=== PATIENT | male | born 1965 | race Caucasian/White ===

== ENCOUNTER 2016-07-10 01:41 | Emergency (ER) | payer OTHER ==
[~2016-07-10 01:41] MED LIST: ASPIRIN CHEWABL81 MG PO; BACLOFEN 10MG T10 MG PO; FENOFIBRATE145 MG PO; IBUPROFEN800 MG PO; KOMBIGLYZE XR1 EACH PO; LIPITOR80 MG PO; LOVAZA1 GM PO; MELOXICAM15 MG PO; NEURONTIN100 MG PO; NUCYNTA50 MG PO; PERCOCET 5/3251 TAB PO; SUDOGEST30 MG PO; VITAMIN E200 UNI3 PO; XARELTO10 MG PO
[2016-07-10 02:33] LABS: BASOPHIL 0.9 % (0-2); EOSINOPHIL 2.7 % (0-5); HCT 42.6 % (42.0-52.0); LYMPHOCYTE 42.5 % (15-48); MCH 31.4 pg (25.0-31.0); MCHC 35.2 g/dL (32.0-36.0); MCV 89.3 fL (78.0-100.0); MONOCYTE 12.7 % (0-12); NEUTROPHIL 41.2 % (41-80); PLT 273 K/uL (150-400); RBC 4.77 M/uL (4.70-6.00); RDW 12.6 % (11.5-14.0); WBC 8.7 K/uL (4.0-10.5)
[2016-07-10 02:42] LABS: INR 0.94 (0.9-1.2); PROTHROMBIN TIME 12.2 SECONDS (11.7-14.0); PTT 25.7 SECONDS (23.2-31.4)
[2016-07-10 02:52] LABS: ALBUMIN 4.2 g/dL (3.5-5.0); BILIRUBIN - TOTAL 0.8 mg/dL (0.1-1.0); CKMB 2.44 ng/mL (0.97-4.94); CREATININE 0.7 mg/dL (0.7-1.2); GLOBULIN (CALCULATION) 2.2 g/dL (2.2-4.2); MAGNESIUM 1.85 mg/dL (1.40-2.10); MYOGLOBIN 30 ng/mL (26-65); POTASSIUM 3.8 mmol/L (3.5-5.1); PRO-BNP 23 pg/mL (0-125); TOTAL PROTEIN 6.4 g/dL (6.4-8.3); TROPONIN T < 0.010 ng/mL
== END 2016-07-10 04:13 | disposition home or self-care (01) ==
LOC: FER 01:41
PROVIDERS: Emergency Medicine
DX: K29.70 Gastritis, unspecified, without bleeding (principal); R19.7 Diarrhea, unspecified; K21.9 Gastro-esophageal reflux disease without esophagitis; Z90.49 Acquired absence of other specified parts of digestive tract; Z90.89 Acquired absence of other organs; Z79.899 Other long term (current) drug therapy
CPT/HCPCS: 36415; 71010; 80053; 82550; 82553; 83735; 83874; 83880; 84484; 85025; 85610; 85730; 93005; C9113

== ENCOUNTER 2020-11-02 02:53 | Emergency (ER) | payer OTHER ==
[~2020-11-02 02:53] MED LIST changes: +ACTOS45 MG PO; +AMARYL2 MG PO; +BACTRIM DS TAB1 EACH PO; +CETIRIZINE HCL5 MG PO; +DIAZEPAM 5MG TAB5 MG PO; +GABAPENTIN300 MG PO; +HCTZ12.5 MG PO; +KEFLEX250 MG PO; +METFORMIN HCL500 MG PO; +NEURONTIN300 MG PO; +OXY-IR 5MG5 MG PO; +OXYCODONE HCL15 M1 PO; +OXYCODONE HCL5 MG PO; +OZEMPIC1 MG/0.75 SC; +PERCOCET 5-3251 EACH PO; +PRINIVIL10 MG PO; +TRAZODONE 50MG50 MG PO; +VICODIN 10/3251 EACH PO; +ZOFRAN4 MG PO
[2020-11-02 03:46] LABS: BASOPHIL 0.8 % (0-2); EOSINOPHIL 2.4 % (0-5); HCT 44.9 % (42.0-52.0); HGB 15.2 g/dl (13.2-18.0); LYMPHOCYTE 33.5 % (15-48); MCHC 33.9 g/dL (32.0-36.0); MCV 91.4 fL (78.0-100.0); MONOCYTE 14.5 % (0-12); MPV 9.1 fL (6.0-9.5); NEUTROPHIL 48.4 % (41-80); NRBC 0; PLT 227 K/uL (150-400); RBC 4.91 M/uL (4.70-6.00); WBC 8.3 K/uL (4.0-10.5)
[2020-11-02 04:06] LABS: BUN/CREAT RATIO (CALC) 18.9 RATIO; C-REACTIVE PROTEIN 0.6 mg/dL (<=0.90); CREATININE 0.74 mg/dL (0.67-1.17)
[2020-11-02] MEDS ORDERED: MOBIC7.5 MG PO (04:26)
[2020-11-02] MEDS ORDERED: ROBAXIN500 MG PO (04:26)
== END 2020-11-02 04:34 | disposition home or self-care (01) ==
LOC: FER 02:53
PROVIDERS: Emergency Medicine Emergency Medical Services
DX: S46.812A Strain of other muscles, fascia and tendons at shoulder and upper arm level, left arm, initial encounter (principal); E11.9 Type 2 diabetes mellitus without complications; X50.0XXA Overexertion from strenuous movement or load, initial encounter; Y92.89 Other specified places as the place of occurrence of the external cause; Y99.0 Civilian activity done for income or pay
CPT/HCPCS: 36415; 71045; 73030; 80048; 84484; 85025; 86140; 93005; J1100; J1885; J2800; J7050

== ENCOUNTER 2021-04-23 17:36 | Emergency (ER) | payer OTHER ==
[~2021-04-23 17:36] MED LIST changes: +MOBIC7.5 MG PO; +OXYCODONE IR 5MG5 MG PO; +ROBAXIN500 MG PO
[2021-04-23 18:21] LABS: BASOPHIL 1.3 % (0-2); EOSINOPHIL 3.5 % (0-5); HCT 46.6 % (42.0-52.0); HGB 15.6 g/dl (13.2-18.0); LYMPHOCYTE 39.2 % (15-48); MCH 30.8 pg (25.0-31.0); MCHC 33.5 g/dL (32.0-36.0); MCV 91.9 fL (78.0-100.0); MONOCYTE 12.7 % (0-12); MPV 8.6 fL (6.0-9.5); NEUTROPHIL 42.7 % (41-80); NRBC 0; PLT 365 K/uL (150-400); RBC 5.07 M/uL (4.70-6.00); RDW 11.9 % (11.5-14.0); WBC 8.6 K/uL (4.0-10.5)
[2021-04-23 18:37] LABS: BILIRUBIN NEGATIVE (NEGATIVE); BLOOD NEGATIVE Ery/uL (NEGATIVE); CLARITY CLEAR (CLEAR); COLOR YELLOW (YELLOW); GLUCOSE (U) 2+ mg/dL (NORMAL); LEUKOCYTES NEGATIVE Leu/uL (NEGATIVE); NITRITE NEGATIVE (NEGATIVE); PROTEIN NEGATIVE (NEGATIVE); SPECIFIC GRAVITY >=1.030 (1.001-1.030); UROBILINOGEN 0.2 mg/dL (0.2-1.0); pH 5.5 (5.0-9.0)
[2021-04-23 18:40] LABS: BUN/CREAT RATIO (CALC) 15.9 RATIO; CREATININE 1.07 mg/dL (0.67-1.17)
[2021-04-23 18:54] LABS: CORONAVIRUS 2019 SARS-COV-2 NEGATIVE (NEGATIVE); INFLUENZA A NAA NEGATIVE (NEGATIVE)
[2021-04-23] MEDS ORDERED: VENTOLIN HFA IN18 GM INH (20:24)
[2021-04-23] MEDS ORDERED: PREDNISONE 20MG20 MG PO (20:24)
== END 2021-04-23 20:43 | disposition home or self-care (01) ==
LOC: FER 17:36
PROVIDERS: Nurse Practitioner Family
DX: J20.9 Acute bronchitis, unspecified (principal); R10.12 Left upper quadrant pain; E11.40 Type 2 diabetes mellitus with diabetic neuropathy, unspecified; Z20.822 Contact with and (suspected) exposure to COVID-19
CPT/HCPCS: 36415; 71046; 71275; 80048; 81003; 84484; 85025; 85379; 93005; J7030; Q9967; U0002

== ENCOUNTER 2021-05-26 07:43 | Emergency (ER) | payer OTHER ==
[~2021-05-26 07:43] MED LIST changes: +PREDNISONE 20MG20 MG PO; +VENTOLIN HFA IN18 GM INH
[2021-05-26 08:40] LABS: BASOPHIL 0.9 % (0-2); EOSINOPHIL 2.9 % (0-5); HCT 42.2 % (42.0-52.0); HGB 14.1 g/dl (13.2-18.0); LYMPHOCYTE 30.5 % (15-48); MCH 30.5 pg (25.0-31.0); MCHC 33.4 g/dL (32.0-36.0); MCV 91.3 fL (78.0-100.0); MONOCYTE 14.5 % (0-12); MPV 9.1 fL (6.0-9.5); NEUTROPHIL 50.6 % (41-80); NRBC 0; PLT 247 K/uL (150-400); RBC 4.62 M/uL (4.70-6.00); WBC 8.2 K/uL (4.0-10.5)
[2021-05-26 08:47] LABS: INR 1.06 (0.9-1.2); PROTHROMBIN TIME 13.2 SECONDS (11.8-13.4); PTT 27.5 SECONDS (24.4-34.7)
[2021-05-26 08:52] LABS: BILIRUBIN NEGATIVE (NEGATIVE); BLOOD NEGATIVE Ery/uL (NEGATIVE); CLARITY CLEAR (CLEAR); COLOR YELLOW (YELLOW); GLUCOSE (U) 2+ mg/dL (NORMAL); LEUKOCYTES NEGATIVE Leu/uL (NEGATIVE); NITRITE NEGATIVE (NEGATIVE); PROTEIN NEGATIVE (NEGATIVE); SPECIFIC GRAVITY >=1.030 (1.001-1.030); UROBILINOGEN 0.2 mg/dL (0.2-1.0)
[2021-05-26 08:56] LABS: ALBUMIN 3.1 g/dL (3.4-5.0); BILIRUBIN - TOTAL 0.9 mg/dL (0.2-1.0); BUN/CREAT RATIO (CALC) 19.7 RATIO; CREATININE 0.71 mg/dL (0.67-1.17); GLOBULIN (CALCULATION) 3.4 g/dL; POTASSIUM 3.7 mmol/L (3.5-5.1); TOTAL PROTEIN 6.5 g/dL (6.4-8.2)
[2021-05-26 09:05] LABS: AMPHETAMINES NEGATIVE (NEGATIVE); BARBITURATES NEGATIVE (NEGATIVE); ECSTASY (MDMA) NEGATIVE (NEGATIVE); MARIJUANA (THC) NEGATIVE (NEGATIVE); METHADONE NEGATIVE (NEGATIVE); OPIATES NEGATIVE (NEGATIVE); OXYCODONE POSITIVE (NEGATIVE)
[2021-05-26] MEDS ORDERED: MEDROL 4MG DOSEP4 MG PO (10:44)
[2021-05-26] MEDS ORDERED: FLEXERIL5 MG PO (10:44)
== END 2021-05-26 11:35 | disposition home or self-care (01) ==
LOC: FER 07:43
PROVIDERS: Emergency Medicine
DX: M54.14 Radiculopathy, thoracic region (principal); I10 Essential (primary) hypertension; E11.9 Type 2 diabetes mellitus without complications; Z79.01 Long term (current) use of anticoagulants; Z79.84 Long term (current) use of oral hypoglycemic drugs
CPT/HCPCS: 36415; 71275; 72128; 72131; 80053; 80305; 81003; 84145; 84484; 85025; 85379; 85610; 85730; 93005; J1170; J1885; J2405; Q9967

== ENCOUNTER 2021-06-12 18:07 | Emergency (ER) | payer OTHER ==
[~2021-06-12 18:07] MED LIST changes: +FLEXERIL5 MG PO; +MEDROL 4MG DOSEP4 MG PO
[2021-06-12 20:19] LABS: BASOPHIL 0.8 % (0-2); EOSINOPHIL 3.3 % (0-5); HCT 44.2 % (42.0-52.0); HGB 14.8 g/dl (13.2-18.0); LYMPHOCYTE 31.9 % (15-48); MCH 30.6 pg (25.0-31.0); MCHC 33.5 g/dL (32.0-36.0); MCV 91.5 fL (78.0-100.0); MPV 8.6 fL (6.0-9.5); NEUTROPHIL 48.5 % (41-80); NRBC 0; PLT 248 K/uL (150-400); RBC 4.83 M/uL (4.70-6.00); RDW 12.6 % (11.5-14.0); WBC 9.2 K/uL (4.0-10.5)
[2021-06-12 20:30] LABS: INR 1.14 (0.9-1.2); PTT 30.4 SECONDS (24.4-34.7)
[2021-06-12 20:31] LABS: D-DIMER 0.61 ug/mLFEU (0.00-0.41)
[2021-06-12 20:38] LABS: ALBUMIN 3.2 g/dL (3.4-5.0); BILIRUBIN - TOTAL 1.1 mg/dL (0.2-1.0); BUN/CREAT RATIO (CALC) 18.4 RATIO; CREATININE 0.76 mg/dL (0.67-1.17); GLOBULIN (CALCULATION) 3.8 g/dL; POTASSIUM 3.8 mmol/L (3.5-5.1)
[2021-06-13 00:17] LABS: BILIRUBIN NEGATIVE (NEGATIVE); BLOOD NEGATIVE Ery/uL (NEGATIVE); CLARITY CLEAR (CLEAR); COLOR YELLOW (YELLOW); GLUCOSE (U) NORMAL (NORMAL); LEUKOCYTES NEGATIVE Leu/uL (NEGATIVE); NITRITE NEGATIVE (NEGATIVE); PROTEIN NEGATIVE (NEGATIVE); SPECIFIC GRAVITY 1.015 (1.001-1.030); UROBILINOGEN 0.2 mg/dL (0.2-1.0)
== END 2021-06-12 23:56 | disposition home or self-care (01) ==
LOC: FER 18:07
PROVIDERS: Internal Medicine
DX: R07.89 Other chest pain (principal); E11.9 Type 2 diabetes mellitus without complications; I10 Essential (primary) hypertension; Z79.84 Long term (current) use of oral hypoglycemic drugs
CPT/HCPCS: 36415; 71275; 80053; 81003; 83690; 84145; 84484; 85025; 85379; 85610; 85730; 93005; J1170; J2405; Q9967

== ENCOUNTER 2021-06-30 22:32 | Emergency (ER) | payer OTHER ==
[2021-07-01 00:17] LABS: BASOPHIL 0.8 % (0-2); EOSINOPHIL 3.7 % (0-5); HCT 42.5 % (42.0-52.0); HGB 14.3 g/dl (13.2-18.0); LYMPHOCYTE 35.2 % (15-48); MCH 30.5 pg (25.0-31.0); MCHC 33.6 g/dL (32.0-36.0); MCV 90.6 fL (78.0-100.0); MONOCYTE 14.9 % (0-12); MPV 8.8 fL (6.0-9.5); NRBC 0; PLT 256 K/uL (150-400); RBC 4.69 M/uL (4.70-6.00); RDW 12.8 % (11.5-14.0); WBC 7.3 K/uL (4.0-10.5)
[2021-07-01 00:45] LABS: ALBUMIN 2.9 g/dL (3.4-5.0); BILIRUBIN - TOTAL 0.8 mg/dL (0.2-1.0); BUN/CREAT RATIO (CALC) 18.8 RATIO; CREATININE 0.64 mg/dL (0.67-1.17); GLOBULIN (CALCULATION) 3.4 g/dL; POTASSIUM 3.7 mmol/L (3.5-5.1); TOTAL PROTEIN 6.3 g/dL (6.4-8.2)
[2021-07-01] MEDS ORDERED: NORCO 5-325 TA1 EACH PO (00:54)
== END 2021-07-01 01:37 | disposition home or self-care (01) ==
LOC: FER 22:32
PROVIDERS: Internal Medicine
DX: R10.11 Right upper quadrant pain (principal); I10 Essential (primary) hypertension; E11.9 Type 2 diabetes mellitus without complications
CPT/HCPCS: 36415; 80053; 83690; 84145; 85025; J1170

== ENCOUNTER 2021-11-07 03:51 | Emergency (ER) | payer OTHER ==
[~2021-11-07 03:51] MED LIST changes: +NORCO 5-325 TA1 EACH PO; +OXYCODONE-ACET1 EAC1 PO
[2021-11-07] MEDS ORDERED: MEDROL 4MG DOSEP4 MG PO (05:27)
== END 2021-11-07 05:50 | disposition home or self-care (01) ==
LOC: FER 03:51
DX: M75.101 Unspecified rotator cuff tear or rupture of right shoulder, not specified as traumatic (principal); M76.62 Achilles tendinitis, left leg; M19.011 Primary osteoarthritis, right shoulder; M19.072 Primary osteoarthritis, left ankle and foot; E11.9 Type 2 diabetes mellitus without complications; I10 Essential (primary) hypertension; Z98.890 Other specified postprocedural states; Z79.899 Other long term (current) drug therapy; Z79.84 Long term (current) use of oral hypoglycemic drugs
CPT/HCPCS: 73030; 73620; J1885